=== PATIENT | male | born 1950 | race Caucasian/White ===

== ENCOUNTER → 2020-04-12 09:27 | Outpatient (BNVA) | payer MEDICARE, OTHER, SELFPAY | PROVIDERS: PCP Nurse Practitioner Family; Visit Provider Nurse Practitioner Family | DX: R53.83 Other fatigue (principal); R07.89 Other chest pain; R53.81 Other malaise; R05 Cough; W57.XXXA Bitten or stung by nonvenomous insect and other nonvenomous arthropods, initial encounter | CPT/HCPCS: 80053; 84443; 85025; 86618; 86666; 86757 ==

== ENCOUNTER → 2020-08-10 09:24 | Outpatient (BNVA) | payer MEDICARE, OTHER, SELFPAY | PROVIDERS: PCP Nurse Practitioner Family; Visit Provider Nurse Practitioner Family | DX: I10 Essential (primary) hypertension (principal); H40.9 Unspecified glaucoma; R21 Rash and other nonspecific skin eruption; M48.02 Spinal stenosis, cervical region | CPT/HCPCS: 80053; 80061; 84443; 85025 ==

== ENCOUNTER → 2020-11-09 13:14 | Outpatient (BNVA) | payer MEDICARE, OTHER, SELFPAY | PROVIDERS: PCP Nurse Practitioner Family; Referring Provider Nurse Practitioner Family; Visit Provider Orthopaedic Surgery | DX: M50.30 Other cervical disc degeneration, unspecified cervical region (principal); M48.02 Spinal stenosis, cervical region; M85.80 Other specified disorders of bone density and structure, unspecified site | CPT/HCPCS: 72050 ==

== ENCOUNTER → 2021-03-09 11:27 | Outpatient (BNVA) | payer MEDICARE, OTHER, SELFPAY | PROVIDERS: PCP Nurse Practitioner Family; Visit Provider Nurse Practitioner Family | DX: Z20.822 Contact with and (suspected) exposure to COVID-19 (principal); R19.7 Diarrhea, unspecified | CPT/HCPCS: 87635 ==

== ENCOUNTER → 2021-03-14 08:44 | Outpatient (BNVA) | payer MEDICARE, OTHER, SELFPAY | PROVIDERS: PCP Nurse Practitioner Family; Visit Provider Nurse Practitioner Family | DX: R19.7 Diarrhea, unspecified (principal) | CPT/HCPCS: 87506 ==

== ENCOUNTER → 2021-07-14 10:37 | Outpatient (BNVA) | payer MEDICARE, OTHER, SELFPAY | PROVIDERS: PCP Nurse Practitioner Family; Visit Provider Physician Assistant | DX: M47.12 Other spondylosis with myelopathy, cervical region (principal) | CPT/HCPCS: 72050 ==

== ENCOUNTER 2021-08-05 08:55 | Outpatient (CLI) | payer MEDICARE, OTHER, SELFPAY ==
--- NOTE | 2021-08-05 09:30 | MR_ITS ---
WS: [id number] MRI CERVICAL SPINE NONCONTRAST HISTORY: M54.50 - Low back pain, unspecified COMPARISON: 12/21/2015 Technique: Multiplanar, multisequence noncontrast imaging of the cervical spine. Normal posterior lumbar alignment. Mild disc space narrowing. Vertebral body osteophytes throughout t he cervical spine encroach upon the cervical cord. Signal within the cervical cord is normal. Visualized posterior fossa is unremarkable. Craniocervical junction, C1 and C2 relationship, odontoid process and soft tissues are normal. C2-C3: Small bilateral foraminal osteophytes. Mild foraminal narrowing, RIGHT greater than LEFT. C3-C4: Mild annular disc bulge with a tiny central disc protrusion. Bilateral foraminal osteophytes a nd mild facet joint arthritis. Mild central and bilateral foraminal stenosis. C4-C5: Moderate annular disc bulging with effacement of CSF. There is a more focal disc osteophyte co mplex to the RIGHT causing deformity and posterior displacement of the RIGHT cervical cord. Moderate central with moderate to severe bilateral foraminal stenosis. C5-C6: Diffuse osteophytic ridging. Effacement of CSF moderate ligamentum flavum and facet arthritis. Osteophytes extend into the foramen. Severe central and bilateral foraminal stenosis. C6-C7: Mild annular disc bulging with a central disc protrusion. Disc and osteophyte encroaches into the foramina. Mild central stenosis. Moderate bilateral foraminal stenosis. C7-T1: Small bilateral foraminal osteophytes. No stenosis. Paraspinal soft tissue are normal. MR/MR cervical spin wo con* [id number] IMPRESSION: 1. Significant progression of degenerative stenosis throughout the cervical sp ine since 2016. 2. Severe central and bilateral foraminal stenosis at C5-6 due to disc and ost eophyte and facet arthritis. 3. Moderate central with moderate to severe bilateral foraminal stenosis at C4 -5 due to disc and osteophyte disease. Mild posterior displacement of the RIGHT cervical cord by disc osteophyte. 4. Moderate bilateral foraminal stenosis at C6-7 with mild central stenosis. 5. Mild central and bilateral foraminal stenosis at C3-4 and mild RIGHT forami nal stenosis at C2-3.
--- NOTE | 2021-08-05 10:15 | MR_ITS ---
WS: [id number] MRI LUMBAR SPINE NONCONTRAST HISTORY: M54.50 - Low back pain, unspecified COMPARISON: 12/28/2015 TECHNIQUE: Sagittal and axial multisequence imaging is submitted. Normal lumbar alignment with no compression fractures or marrow edema. Very mild disc desiccation without significant loss of height. Conus terminates normally at L1. L1-L2: Moderate facet joint hypertrophy greatest on the RIGHT. Mild encroachment into the subarticula r recess. Mild bilateral foraminal narrowing, RIGHT greater than LEFT and mild RIGHT subarticular rec ess encroachment. No high-grade central stenosis. L2-L3: Mild ligamentum flavum hypertrophy with mild to moderate facet arthritis. Mild encroachment in to the central canal. Mild foraminal narrowing. L3-L4: Diffuse annular disc bulge with moderate facet joint arthritis and minimal ligamentum flavum h ypertrophy. There is encroachment and flattening of the ventral thecal sac with narrowing of the suba rticular recesses and foramina. There is at least mild to moderate bilateral foraminal narrowing with disc and osteophyte contacting the L3 and L4 nerve roots. L4-L5: Diffuse mild annular disc bulging and osteophytic ridging. Moderate ligamentum flavum and face t joint arthritis. Encroachment into the thecal sac resulting at least moderate central stenosis. Sev ere bilateral subarticular recess and RIGHT foraminal stenosis and moderate on the LEFT. There is als o a central disc protrusion. There is significant contact on the traversing L5 nerve roots. L5-S1: Broad-based disc bulging centrally contacting the ventral thecal sac. No significant stenosis. Mild atherosclerotic changes within the visualized abdominal aorta. MR/MR lumbar spine wo con* [id number] IMPRESSION: 1. Severe bilateral subarticular recess and RIGHT foraminal stenosis and moder ate on the LEFT at L4-5. Significant contact on the traversing L5 nerve roots. 2. Moderate central stenosis at L4-5. 3. Mild to moderate bilateral subarticular recess and foraminal narrowing at L 3-4 with mild contact on the L3 and L4 nerve roots. 4. Mild encroachment into the subarticular recesses and foramina at L1-2. Slig htly greater on the RIGHT than the LEFT. No high-grade central stenosis. 5. Minimal central and foraminal narrowing at L2-3.
== END 2021-08-05 08:56 | disposition home or self-care (01) ==
PROVIDERS: PCP Nurse Practitioner Family; Visit Provider Physician Assistant
DX: M48.061 Spinal stenosis, lumbar region without neurogenic claudication (principal); M48.02 Spinal stenosis, cervical region; M25.78 Osteophyte, vertebrae
CPT/HCPCS: 72141; 72148

== ENCOUNTER → 2021-09-07 09:40 | Outpatient (BNVA) | payer MEDICARE, OTHER, SELFPAY | PROVIDERS: PCP Nurse Practitioner Family; Referring Provider Orthopaedic Surgery; Visit Provider Anesthesiology Pain Medicine | DX: M50.30 Other cervical disc degeneration, unspecified cervical region (principal); M47.812 Spondylosis without myelopathy or radiculopathy, cervical region; M47.12 Other spondylosis with myelopathy, cervical region; M48.062 Spinal stenosis, lumbar region with neurogenic claudication; M47.816 Spondylosis without myelopathy or radiculopathy, lumbar region; M51.16 Intervertebral disc disorders with radiculopathy, lumbar region; M79.604 Pain in right leg; M79.605 Pain in left leg | CPT/HCPCS: 99205 ==

== ENCOUNTER → 2021-11-02 10:43 | Outpatient (BNVA) | payer MEDICARE, OTHER, SELFPAY | PROVIDERS: PCP Nurse Practitioner Family; Visit Provider Nurse Practitioner Family | DX: I10 Essential (primary) hypertension (principal); E55.9 Vitamin D deficiency, unspecified | CPT/HCPCS: 80053; 82306 ==

== ENCOUNTER → 2022-11-07 10:36 | Outpatient (BNVA) | payer MEDICARE, OTHER, SELFPAY | PROVIDERS: PCP Nurse Practitioner Family; Visit Provider Nurse Practitioner Family | DX: Z12.5 Encounter for screening for malignant neoplasm of prostate (principal); F32.A Depression, unspecified; R53.83 Other fatigue; I10 Essential (primary) hypertension; R35.0 Frequency of micturition | CPT/HCPCS: 80053; 81000; 83036; 84439; 84443; 84481; 85025; 87077; 87086; 87184; G0103 ==

== ENCOUNTER 2022-11-11 13:29 | Emergency (ER) | payer MEDICARE, OTHER, SELFPAY ==
[2022-11-11 13:34] VITALS: BP 158/98; PULSE 95; TEMP 36.6; O2SAT 99; BMI 27.3
--- NOTE | 2022-11-11 14:23 | W.ED.ANXIETY ---
Documented by User: ANTIONETTE Lao 11/12/22 07:17 HPI - Anxiety General: Chief Complaint: Anxiety Stated Complaint: SOB; ANXIETY Time Seen by Provider: 11/11/22 13:44 Source: patient Mode of arrival: EMS Limitations: no limitations History of Present Illness: Patient presents to the emergency department today brought by EMS for evaluation treatment of continuation of multiple, varied symptoms. Chart review showed he saw his nurse practitioner on 11/07 for a follow-up on anxiety and depression. Patient at that time was complaining of difficulty sleeping, decreased appetite, fatigue. Patient's depression screening indicated he felt a loss of antonio performing activities, he felt worthless, had a decreased energy level, and was feeling hopeless. He was not HI or SI at that time. Patient was requesting evaluation for his blood pressure and his prostate at that time. Lab work was obtained including CBC, CMP, PSA, thyroid test, and urinalysis. All lab work was within normal limits were otherwise unremarkable. Patient had been put on Prozac where he indicated he was faithfully taking his medication as prescribed. Patient states today much of the same. He also states he is feeling shaky and has a difficult time concentrating or feeling confused. Continues to choose not to eat and reports poor sleep habits. He reports he took EMS because he did not feel he could drive himself in today. Patient reports all of this started around . He informs me that on he was attacked by a dog and based on the level of detail and description of the events, does appear to have given the patient quite a bit of worry and anxiety. Patient states his primary care doctor thinks he has PTSD from it. Associated symptoms: Reports confusion (Difficulty concentrating) Review of Systems General: Reports: 10 or more systems reviewed and unremarkable except in HPI and below Eyes: Reports: blurry vision GI: Reports: early satiety (Loss of appetite) Neuro: Reports: confusion (Difficulty concentrating), behavioral changes and difficulty communicating thoughts Psych: Reports: anxiety, depression, mood swings, sleeping less, hopelessness, loss of interest, change in appetite, irritability and difficulty concentrating; Denies: homicidal ideation PFS ED PFSH: Medical History Degeneration of intervertebral disc of cervical region DJD (degenerative joint disease), lumbar Glaucoma HTN (hypertension) Spinal stenosis, cervical region Surgical History No pertinent past surgical history Family History Father CAD (coronary artery disease) Cancer Lung disease Grandfather Cancer Diabetes Grandmother Diabetes Brother Lung disease Denies family history of Clotting disorder Chronic kidney disease (CKD) Suicide Stroke Social History Smoking and tobacco status: never smoked Second hand smoke exposure: No Alcohol intake: never Adopted: No Lives independently: Yes Household members: none Housing: House Marital status: / Number of children: 2 Highest education level completed: High School Graduate service: Yes ([employer]) status: Retired Current occupational status: retired Pets and animals: Yes Current gender identity: Male Physical Exam Const: COMMON NORMALS: patient oriented x3, no limitations and alert; apparent distress (Patient is emotional, appears frustrated) GENERAL APPEARANCE: well kempt HENMT: COMMON NORMALS: normocephalic, hearing grossly normal bilaterally, external ears normal, Normal external nose present, moist oral mucous membranes and dentition normal HEAD & SCALP: normocephalic NOSE: Normal external nose present EXTERNAL EAR: Yes external ears normal Eye: COMMON NORMALS: Equal, round and reactive pupils present, EOMs intact bilaterally and conjunctivae normal CONJUNCTIVA: Yes conjunctivae normal PUPIL: Yes Equal, round and reactive pupils present Neck/C-Spine: COMMON NORMALS: full ROM, no meningeal signs and no JVD Resp: COMMON NORMALS: normal respiratory effort, No retractions and No use of accessory muscles Cardio: COMMON NORMALS: no JVD and regular rate RATE: regular rate Back/Pelvis: COMMON NORMALS: thoracic and lumbar spine normal to inspection and thoraco-lumbar ROM normal Extremity: COMMON NORMALS: normal to inspection and full ROM Neuro: COMMON NORMALS: patient oriented x3 SENSORIUM/ORIENTATION: Yes alert MENINGEAL SIGNS: Yes no meningeal signs Psych: COMMON NORMALS: speech normal APPEARANCE: Yes grossly normal and Yes well kempt ATTITUDE: Yes calm and Yes engaged ACTIVITY/MOTOR BEHAVIOR: Yes appropriate eye contact and Yes disorganized behavior SPEECH: Yes normal speech MOOD & AFFECT: Yes depressed mood, Yes anxious, Yes sad, Yes tearful and Yes fearful THOUGHT PROCESS: Flight of ideas present and Tangential thought process present THOUGHT CONTENT: Yes Suicidality present (would be ok with going to sleep and not waking up) ATTENTION/CONCENTRATION: Yes attention grossly intact and Yes concentration grossly intact MEMORY/COGNITION: Yes memory grossly intact and Yes cognition grossly intact INSIGHT: Good insight present (Psych) JUDGEMENT: Good judgement present (Psych) Course Vital Signs: Vital signs: Vital Signs Temperature 97.9 F 11/11/22 13:34 Pulse Rate 95 11/11/22 13:34 Blood Pressure 158/98 11/11/22 13:34 Pulse Oximetry 99 11/11/22 13:34 Oxygen Delivery Me thod 11/11/22 13:34 MDM - Anxiety Medical Decision Making Patient was brought in by EMS for evaluation treatment of multiple symptoms. Patient stated he did not feel comfortable driving and has no one with him which is why he came via EMS. I did an extensive chart review on this patient and read his previous evaluation by his primary care doctor where they were worried about depression and PTSD. Patient does admit that a lot of his symptoms started or worsen after his attacked by the dog around [place] but does not seem convinced that he is dealing with depression or PTSD. He does admit he gets anxious sometimes. He admitted he takes the medication given to him by his doctor but he does not particularly want to. Patient feels that there is something else going on and that he is declining rapidly. Patient admits that he is alone at home. He is very isolated both [place], and relationally-his has , [place] and he recently lost his dog. After speaking with the patient, I did speak with Dr. Rojas due to my concerns. After hearing the patient's case he recommended reaching out to psychiatry and I spoke to Dr. Walton. Dr. Walton indicated patient was on a very low-dose of medication and should have his medications increased. Also, indicated the need for behavioral health referral. He recommended putting the patient through Mini-Mental examination to try and decipher psychological from neurological issues. He also encourage me to rephrase the SI/HI questioning to the patient and ask if you were to fall asleep and not wake up in the morning, would that be okay? Patient's MMSE score was 30. When rephrased about falling asleep, patient indicated that yes it would be fine with him to go to sleep and not wake up. He stated it would be easier . At this point, I did request a second opinion at bedside by Dr. Rojas, who I do believe was able to connect a little better with the patient and explained to him a bit further his signs and symptoms indicating concern for a major depression. They discussed changing and adding medication to help better control symptoms and to encourage sleep. They also discussed the option for inpatient treatment however, patient declined stating he does not want to stay in the hospital. However, he was willing to have a behavioral health referral placed. Behavioral health referral placed urgently on the patient's behalf and as he is being taken home by taxi, first round of his new medication and increased medication doses was provided here in the emergency department given the time of night and it being the weekend with concern for his pharmacy being open. However, he was given instructions for starting his new dosing and new medication tomorrow on his discharge paperwork. Patient was also given strict return precautions for change in thinking including SI/HI concerns. This note by Dr. Rojas: I have seen and evaluated the patient. I have interviewed him after reviewing with the nurse practitioner and reviewing his recent work-up and medications. The patient screens positive for major depression as well as anxiety. He has sleep changes, appetite changes, concentration changes, anhedonia, decreased endurance, poor memory, and does not care whether he lives or dies. He is not actively suicidal. I recommended speaking with the psychiatrist. Nurse practitioner did speak with psychiatrist. The patient is not actively suicidal. The patient was given the option of staying in the hospital or seeking outpatient treatment. He would like to be outpatient. The patient is not responding to fluoxetine. His fluoxetine was changed from 10 mg daily to 30 mg daily. He will take this in the morning. The patient is having severe anxiety as well as insomnia and anorexia. I have added on Seroquel 50 mg in the morning and 100 mg in the evenings. He will have to take 50 mg a day for the first 2 days. I am hopeful that this will help him sleep and reduce his severe anxiety. A referral has been sent so that the patient will have a prompt follow-up either with his primary care physician or behavioral health or both. The patient was invited to return should symptoms worsen. Differential Diagnosis Likely panic disorder and acute anxiety (Depression, Parkinson, Alzheimer's, SI/HI) Discharge Plan Discharge Patient Disposition: Home Clinical Impression: Major depression Condition: Stable Prescriptions: New fluoxetine 10 mg capsule 30 mg PO QAM 10 Days Qty: 30 0RF Seroquel 50 mg tablet See Rx Instructions .ROUTE .COMPLEX Qty: 31 0RF Rx Instructions: take 1 tablet on day one. Then, take one tablet in the morning and 2 tablets in the evening every day after. Discontinued fluoxetine [Prozac] 10 mg capsule 10 mg PO DAILY Qty: 30 0RF No Action cholecalciferol (vitamin D3) 25 mcg (1,000 unit) capsule 25 mcg PO DAILY vitamin E 200 unit capsule 200 unit PO DAILY vit A-vit C-vit [id number]-[id number] [id number] tablet PO timolol maleate 0.5 % drops ophthalmic (eye) BID Label Comments: per Dr Dickey brimonidine 0.2 % drops ophthalmic (eye) triamcinolone acetonide 0.1 % ointment 1 applic topical TID 14 Days Qty: 30 2RF Rx Instructions: large area trunk, lower legs terbinafine HCl 250 mg tablet 250 mg PO DAILY Qty: 14 0RF acetaminophen-codeine 300-60 mg tablet 1 tab PO Q6H PRN (Reason: pain) 5 Days Qty: 20 0RF lisinopril 20 mg tablet See Rx Instructions .ROUTE .COMPLEX Qty: 90 1RF Dose Instruction: TAKE ONE TABLET BY MOUTH DAILY Rx Instructions: TAKE ONE TABLET BY MOUTH DAILY Discharge Orders: Discharge ED (Routine); Ordered 11/11/22 Ordered By: Yumiko Isaacs Referrals: Katja Jimenez FNP [Primary Care Provider] - Discharge Diet: Advance as tolerated Discharge Activity: Increase activity as tolerated Patient Instructions: Depression in Older Adults (ED) Activity Restrictions/Additional Instructions: Today in the emergency department we thoroughly evaluated your previous history, your lab work, performed a Mini-Mental state examination and screening for major depression. After speaking to both the psychiatrist on-call and the emergency room physician here, they have concerns that you are showing signs and symptoms of major depression as you are fatigue, have no interest in previously enjoyed activities, have difficulty sleeping, have difficulty concentrating, have difficulty eating, and are feeling very alone. We are changing your medication to have better coverage of this diagnosis. We would like you to take your Prozac 30 mg each morning. The doctor is also added Seroquel to help you sleep. You received your first dose here in the emergency department. Tomorrow you need to take 1 pill. However, every day after you need to take 1 pill in the morning and 2 pills in the afternoon. Please call your primary care doctor first thing on Sunday to get a follow-up appointment this week. I have also requested a referral be placed to behavioral health services for a full evaluation as to better treat and remedy your current symptoms. If it anytime you feel like harming your self or ending your life or feel like harming others you need to return to the emergency room immediately for your safety. 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 [employer]g Fwd Documented by User: Jose Rojas MD 11/11/22 17:49 HPI - Anxiety General: Chief Complaint: Anxiety Stated Complaint: SOB; ANXIETY Time Seen by Provider: 11/11/22 13:44 [facility] ED PFSH: Medical History Degeneration of intervertebral disc of cervical region DJD (degenerative joint disease), lumbar Glaucoma HTN (hypertension) Spinal stenosis, cervical region Surgical History No pertinent past surgical history Family History Father CAD (coronary artery disease) Cancer Lung disease Grandfather Cancer Diabetes Grandmother Diabetes Brother Lung disease Denies family history of Clotting disorder Chronic kidney disease (CKD) Suicide Stroke Social History Smoking and tobacco status: never smoked Second hand smoke exposure: No Alcohol intake: never Adopted: No Lives independently: Yes Household members: none Housing: House Marital status: / Number of children: 2 Highest education level completed: High School Graduate service: Yes ([employer]) status: Retired Current occupational status: retired Pets and animals: Yes Current gender identity: Male Course Vital Signs: Vital signs: Vital Signs Temperature 97.9 F 11/11/22 13:34 Pulse Rate 95 11/11/22 13:34 Blood Pressure 158/98 11/11/22 13:34 Pulse Oximetry 99 11/11/22 13:34 Oxygen Delivery Me thod 11/11/22 13:34 MDM - Anxiety Medical Decision Making This note by Dr. Rojas: I have seen and evaluated the patient. I have interviewed him after reviewing with the nurse practitioner and reviewing his recent work-up and medications. The patient screens positive for major depression as well as anxiety. He has sleep changes, appetite changes, concentration changes, anhedonia, decreased endurance, poor memory, and does not care whether he lives or dies. He is not actively suicidal. I recommended speaking with the psychiatrist. Nurse practitioner did speak with psychiatrist. The patient is not actively suicidal. The patient was given the option of staying in the hospital or seeking outpatient treatment. He would like to be outpatient. The patient is not responding to fluoxetine. His fluoxetine was changed from 10 mg daily to 30 mg daily. He will take this in the morning. The patient is having severe anxiety as well as insomnia and anorexia. I have added on Seroquel 50 mg in the morning and 100 mg in the evenings. He will have to take 50 mg a day for the first 2 days. I am hopeful that this will help him sleep and reduce his severe anxiety. A referral has been sent so that the patient will have a prompt follow-up either with his primary care physician or behavioral health or both. The patient was invited to return should symptoms worsen. Discharge Plan Discharge Patient Disposition: Home Clinical Impression: Major depression Condition: Stable Prescriptions: New fluoxetine 10 mg capsule 30 mg PO QAM 10 Days Qty: 30 0RF Seroquel 50 mg tablet See Rx Instructions .ROUTE .COMPLEX Qty: 31 0RF Rx Instructions: take 1 tablet on day one. Then, take one tablet in the morning and 2 tablets in the evening every day after. Discontinued fluoxetine [Prozac] 10 mg capsule 10 mg PO DAILY Qty: 30 0RF No Action cholecalciferol (vitamin D3) 25 mcg (1,000 unit) capsule 25 mcg PO DAILY vitamin E 200 unit capsule 200 unit PO DAILY vit A-vit C-vit G-lfoz-zhavxj [id number] rhkv-uu-[id number] tablet PO timolol maleate 0.5 % drops ophthalmic (eye) BID Label Comments: per Dr Dickey brimonidine 0.2 % drops ophthalmic (eye) triamcinolone acetonide 0.1 % ointment 1 applic topical TID 14 Days Qty: 30 2RF Rx Instructions: large area trunk, lower legs terbinafine HCl 250 mg tablet 250 mg PO DAILY Qty: 14 0RF acetaminophen-codeine 300-60 mg tablet 1 tab PO Q6H PRN (Reason: pain) 5 Days Qty: 20 0RF lisinopril 20 mg tablet See Rx Instructions .ROUTE .COMPLEX Qty: 90 1RF Dose Instruction: TAKE ONE TABLET BY MOUTH DAILY Rx Instructions: TAKE ONE TABLET BY MOUTH DAILY Discharge Orders: Discharge ED (Routine); Ordered 11/11/22 Ordered By: Yumiko Isaacs Referrals: Katja Jimenez FNP [Primary Care Provider] - Discharge Diet: Advance as tolerated Discharge Activity: Increase activity as tolerated Patient Instructions: Depression in Older Adults (ED) Activity Restrictions/Additional Instructions: Today in the emergency department we thoroughly evaluated your previous history, your lab work, performed a Mini-Mental state examination and screening for major depression. After speaking to both the psychiatrist on-call and the emergency room physician here, they have concerns that you are showing signs and symptoms of major depression as you are fatigue, have no interest in previously enjoyed activities, have difficulty sleeping, have difficulty concentrating, have difficulty eating, and are feeling very alone. We are changing your medication to have better coverage of this diagnosis. We would like you to take your Prozac 30 mg each morning. The doctor is also added Seroquel to help you sleep. You received your first dose here in the emergency department. Tomorrow you need to take 1 pill. However, every day after you need to take 1 pill in the morning and 2 pills in the afternoon. Please call your primary care doctor first thing on Sunday to get a follow-up appointment this week. I have also requested a referral be placed to behavioral health services for a full evaluation as to better treat and remedy your current symptoms. If it anytime you feel like harming your self or ending your life or feel like harming others you need to return to the emergency room immediately for your safety. 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 Ernesto Watkins
[2022-11-11] MEDS: quetiapine 25 mg Tablet 50 MG PO (15:46)
[2022-11-11] MEDS: fluoxetine 20 mg Capsule PO (15:47)
--- NOTE | 2022-11-14 09:58 | DCPLANNER ---
Addendum entered by Donna Quiroga 11/14/22 13:27: Marnie from [facility] emailed heel caser: I called [facility] and left a voicemail with my call back number. Original Note: credit administration manager had message to schedule a follow up appointment for patient with [facility]. credit administration manager sent patients information to the front office staff at [facility] and emailed patients information to Marnie Barillas, patient intake coordinator, at [facility]. Patients information will be printed and reviewed. Clinic will call patient with appointment information.
== END 2022-11-11 16:02 | disposition home or self-care (01) ==
PROVIDERS: Emergency Provider Emergency Medicine; PCP Nurse Practitioner Family
DX: F32.A Depression, unspecified (principal); I10 Essential (primary) hypertension
CPT/HCPCS: 99283

== ENCOUNTER → 2022-11-22 10:26 | Outpatient (BNVA) | payer MEDICARE, OTHER, SELFPAY | PROVIDERS: PCP Nurse Practitioner Family; Visit Provider Nurse Practitioner Family | DX: R35.0 Frequency of micturition (principal) | CPT/HCPCS: 81000 ==

== ENCOUNTER → 2023-03-28 10:48 | Outpatient (BNVA) | payer MEDICARE, OTHER, SELFPAY | PROVIDERS: PCP Nurse Practitioner Family; Visit Provider Nurse Practitioner Family | DX: I10 Essential (primary) hypertension (principal) | CPT/HCPCS: 80053; 80061 ==

== ENCOUNTER → 2023-10-17 10:27 | Outpatient (BNVA) | payer MEDICARE, OTHER, SELFPAY | PROVIDERS: PCP Nurse Practitioner Family; Visit Provider Nurse Practitioner Family | DX: R53.83 Other fatigue (principal); Z12.5 Encounter for screening for malignant neoplasm of prostate; I10 Essential (primary) hypertension; E55.9 Vitamin D deficiency, unspecified | CPT/HCPCS: 80053; 80061; 82306; 84443; 85025; G0103 ==

== ENCOUNTER → 2024-06-17 10:40 | Outpatient (BNVA) | payer MEDICARE, OTHER, SELFPAY | PROVIDERS: PCP Nurse Practitioner Family; Visit Provider Nurse Practitioner Family | DX: E55.9 Vitamin D deficiency, unspecified (principal); R53.83 Other fatigue; I10 Essential (primary) hypertension; W57.XXXA Bitten or stung by nonvenomous insect and other nonvenomous arthropods, initial encounter | CPT/HCPCS: 80053; 80061; 82306; 84439; 84443; 85025 ==

== ENCOUNTER → 2024-06-18 08:58 | Outpatient (BNVA) | payer MEDICARE, OTHER, SELFPAY | PROVIDERS: PCP Nurse Practitioner Family; Visit Provider Nurse Practitioner Family | DX: W57.XXXA Bitten or stung by nonvenomous insect and other nonvenomous arthropods, initial encounter (principal) | CPT/HCPCS: 86618; 86666; 86757 ==

== ENCOUNTER 2024-12-04 10:47 | Emergency (ER) | payer MEDICARE, OTHER, SELFPAY ==
[2024-12-04 11:00] VITALS: BP 174/93; PULSE 101; RESP 18; TEMP 36.8; O2SAT 99; BMI 28.5
--- NOTE | 2024-12-04 13:25 | W.ED.ABDPA2 ---
HPI - Abdominal Pain General: Chief Complaint: Abdominal Pain Stated Complaint: bowel problems Time Seen by Provider: 12/04/24 13:14 Source: patient Mode of arrival: ambulatory Limitations: no limitations History of Present Illness: Patient is a nice 73-year-old male presents to ED today with complaint of bowel problems . He states about 3 weeks ago he began having cough and congestion so took 2 tablets of fish Amoxicillin. He feels like this tore my stomach up . Since then he has been having issues with constipation, bloating, abdominal discomfort, burning to his left lower abdomen. At one point he did have a large/formed bowel movement with a small amount of bright red blood following this which has since subsided. He has been drinking well but doesn't feel like he has ate much secondary to symptoms. MD elicited complaint: abdominal pain Pertinent past history: none Onset (ago): week(s) Pain Consistency: intermittent Location: LLQ Severity: moderate Quality: burning Radiation: none Migration to: no migration Exacerbating factors: bowel movement Relieving factors: nothing Associated Symptoms: Reports bloating, constipation, GI cramping and nausea; Denies chills, dysuria, fever(s), hematochezia, melena and vomiting Related Data Home Medications ?Medication ?Instructions ?Recorded ?Confirmed brimonidine 0.2 % eye drops 1 drp ophthalmic (eye) BID 08/10/20 12/04/24 cholecalciferol (vitamin D3) 25 25 mcg PO DAILY 08/10/20 12/04/24 mcg (1,000 unit) capsule vit A 7,160 unit-vit C 113 mg-vit 1 tab PO BID 08/10/20 12/04/24 E 100 [id number]-[id number]-tmclqv tablet latanoprost 0.005 % eye drops 1 drp ophthalmic (eye) QPM 12/04/24 12/04/24 lisinopril 20 mg tablet 20 mg PO DAILY 12/04/24 12/04/24 multivitamin 1 tab PO DAILY 12/04/24 12/04/24 vitamin E 268 mg (400 unit) capsule 268 mg PO DAILY 12/04/24 12/04/24 zinc sulfate 50 mg zinc (220 mg) 50 mg PO BID 12/04/24 12/04/24 tablet Previous Rx's ?Medication ?Instructions ?Recorded acetaminophen 300 mg-codeine 60 mg 1 tab PO Q6H PRN pain 5 days #20 03/10/25 tablet tabs quetiapine 50 mg tablet (Seroquel) See Rx Instructions .Route 11/24/24 .COMPLEX #90 tabs fluoxetine 10 mg capsule (Prozac) 10 mg PO DAILY #90 caps 11/26/24 Allergies Allergy/AdvReac Type Severity Reaction Status Date / Time No Known Allergies Allergy Verified 06/17/24 09:58 Review of Systems Const: Denies: fever(s), chills, body aches, fatigue or malaise Card: Denies: chest pain Resp: Denies: dyspnea GI: Reports: abdominal pain, nausea, constipation, bloating, GI cramping and rectal pain; Denies: vomiting, hematochezia or melena : Denies: flank pain, difficulty urinating, dysuria, urinary frequency, urinary urgency or urinary hesitancy Musc: Denies: neck pain, back pain, extremity pain, extremity swelling, joint swelling or joint redness Skin/Breast: Denies: rash Neuro: Denies: headache(s), numbness in extremities, weakness in extremities, sensory changes or dizziness PFSH ED PFSH: Medical History Degeneration of intervertebral disc of cervical region Glaucoma HTN (hypertension) DJD (degenerative joint disease), lumbar Spinal stenosis, cervical region Surgical History No pertinent past surgical history Family History Father CAD (coronary artery disease) Cancer Lung disease Grandfather Cancer Diabetes Grandmother Diabetes Brother Lung disease Denies family history of Clotting disorder Chronic kidney disease (CKD) Suicide Stroke Social History Smoking and tobacco/nicotine status: current every day tobacco/nicotine user Second hand smoke exposure: No Alcohol intake: never Substance/Drug Use: never Adopted: No Lives independently: Yes Household members: none Housing: House Marital status: / Number of children: 2 Highest education level completed: High School Graduate service: Yes (Hired) status: Retired Current occupational status: retired Pets and animals: Yes Current gender identity: Male Physical Exam Const: COMMON NORMALS: no acute distress, average body habitus, patient oriented x3, no limitations, healthy appearing, alert and well nourished GENERAL APPEARANCE: cooperative ORIENTATION/CONSCIOUSNESS: Yes awake, Yes oriented to person, Yes oriented to place and Yes oriented to time Eye: COMMON NORMALS: no scleral icterus Resp: COMMON NORMALS: normal respiratory effort and clear to auscultation bilaterally AUSCULTATION: clear to auscultation bilaterally Cardio: COMMON NORMALS: regular rate and regular rhythm RATE: regular rate RHYTHM: regular rhythm GI: COMMON NORMALS: Normal to inspection, nondistended, normoactive bowel sounds present, Soft to palpation, No hepatosplenomegaly present and no masses INSPECTION: Yes normal to inspection AUSCULTATION: Yes normoactive bowel sounds PALPATION: Yes Soft to palpation, Yes Tenderness to palpation present (GI) (LLQ), No Guarding due to palpation present (GI), No Rigid due to palpation and Yes No hepatosplenomegaly present RECTAL EXAM: Yes other (small non-thrombosed external hemorrhoids) : COMMON NORMALS: Yes no CVA tenderness BLADDER/KIDNEY EXAM: Yes no CVA tenderness Back/Pelvis: COMMON NORMALS: no CVA tenderness Neuro: COMMON NORMALS: patient oriented x3 SENSORIUM/ORIENTATION: Yes alert, Yes oriented to person, Yes oriented to place and Yes oriented to time Course Vital Signs: Vital signs: Vital Signs Temperature 98.3 F 12/04/24 11:00 Pulse Rate 101 H 12/04/24 11:00 Respiratory Rate 18 12/04/24 11:00 Blood Pressure 139/83 12/04/24 15:36 Pulse Oximetry 97 12/04/24 15:36 Oxygen Delivery Me thod Room Air 12/04/24 11:00 MDM - Abdominal Pain Medical Decision Making Patient clinically appears in no acute distress. Vital signs are stable. Blood work overall is nonactionable. His UA does not appear infected. CT scan showing moderate colonic stool burden. No acute or surgical abnormalities appreciated. Incidentally found to have prostatomegaly. Does not think he has ever had a prostate screening exam. He has never had a colonoscopy. An ED standpoint, patient will be allowed discharge. I do want him to follow-up with primary care for an ER follow-up. Return to ED precautions discussed. Medical Records I reviewed the patient's medical records. Lab Data I reviewed the patient's lab results. 12/04/24 13:20 12/04/24 13:20 Labs/Radiology: Radiology Impressions Abdomen/Pelvis CT 12/04/24 13:31 IMPRESSION: 1. No bowel obstruction or acute inflammation. 2. Moderate colonic stool burden. Correlate for constipation. 3. Mild colonic diverticulosis. 4. Prostatomegaly, likely contributing to a component of noted bladder wall thickening. Recommend correlation if there is concern for cystitis. COMMENTS: Consistent with the [employer]'s Incidental Findings Committee white paper (J Am Sera Radiol 2018): Any incidental renal lesion less than 1 cm or classified as too small to characterize, or any incidental cystic renal lesion characterized as simple-appearing, is likely benign. No follow-up imaging is recommended for these lesions per consensus recommendations based on imaging criteria. Laboratory Results WBC 11.29 10^3/uL (3.29-11.43) 12/04/24 13:20 RBC 4.54 10^6/uL (3.85-5.65) 12/04/24 13:20 Hgb 15.40 g/dL (11.27-16.99) 12/04/24 13:20 Hct 47.1 % (37-53) 12/04/24 13:20 MCV 103.7 fl (82-101) H 12/04/24 13:20 MCH 33.9 pg (27-33) H 12/04/24 13:20 MCHC 32.7 g/dL (30-55) 12/04/24 13:20 RDW 13.1 % (12.1-15.1) 12/04/24 13:20 Plt Count 287 10^3/cmm (157-399) 12/04/24 13:20 MPV 9.7 fL (7.4-10.4) 12/04/24 13:20 Neut % (Auto) 81.1 % 12/04/24 13:20 Lymph % (Auto) 12.8 % 12/04/24 13:20 [place] % (Auto) 5.4 % 12/04/24 13:20 Eos % (Auto) 0.1 % 12/04/24 13:20 Baso % (Auto) 0.3 % 12/04/24 13:20 Neut # (Auto) 9.16 10^3/uL (1.8-7.7) H 12/04/24 13:20 Lymph # (Auto) 1.5 10^3/uL (0.8-4.8) 12/04/24 13:20 [place] # (Auto) 0.6 10^3/uL (0.2-0.9) 12/04/24 13:20 Eos # (Auto) 0.0 10^3/uL (0.0-0.8) 12/04/24 13:20 Baso # (Auto) 0.0 10^3/uL (0.0-0.1) 12/04/24 13:20 Nucleated RBC % (auto) 0 % 12/04/24 13:20 Nucleated RBCs # 0.0 /100WBC 12/04/24 13:20 Sodium 137 mmol/L (136-145) 12/04/24 13:20 Potassium 4.1 mmol/L (3.5-5.1) 12/04/24 13:20 Chloride 100 mmol/L (98-107) 12/04/24 13:20 Carbon Dioxide 24 mmol/L (22-29) 12/04/24 13:20 Anion Gap 17.1 (5-19) 12/04/24 13:20 BUN 14 mg/dL (8-23) 12/04/24 13:20 Creatinine 1.0 mg/dL (0.7-1.2) 12/04/24 13:20 GFR Calculation Not Reportable 12/04/24 13:20 Glucose 98 mg/dL (65-115) 12/04/24 13:20 Calculated Osmolality 284 mOsm/kg (285-295) L 12/04/24 13:20 Calcium 10.1 mg/dL (8.5-10.5) 12/04/24 13:20 Total Bilirubin 0.5 mg/dL (0.15-1.2) 12/04/24 13:20 AST 15 U/L (0-40) 12/04/24 13:20 ALT 13 U/L (0-41) 12/04/24 13:20 Alkaline Phosphatase 82 U/L (40-130) 12/04/24 13:20 Total Protein 9.3 g/dL (6.6-8.7) H 12/04/24 13:20 Albumin 4.5 g/dL (3.5-5.2) 12/04/24 13:20 Globulin 4.8 g/dL (1.3-4.6) H 12/04/24 13:20 Lipase 32 U/L (13-60) 12/04/24 13:20 Urine Color Yellow (Yellow) 12/04/24 14:14 Urine Appearance Clear (CLEAR) 12/04/24 14:14 Urine pH 5.5 (5-7) 12/04/24 14:14 Ur Specific [place] 1.017 (1.005-1.030) 12/04/24 14:14 Urine Protein Negative (Negative) 12/04/24 14:14 Urine Glucose (UA) Negative (Normal) 12/04/24 14:14 Urine Ketones 2+ (Negative) H 12/04/24 14:14 Urine Blood Negative (Negative) 12/04/24 14:14 Urine Nitrate Negative (Negative) 12/04/24 14:14 Urine Bilirubin Negative (Negative) 12/04/24 14:14 Urine Urobilinogen 0.2 mg/dL (Negative) 12/04/24 14:14 Ur Leukocyte Esterase Trace (Negative) A 12/04/24 14:14 Urine RBC 0-2 /hpf (0-2) 12/04/24 14:14 Urine WBC 0-5 /hpf (0-5) 12/04/24 14:14 Ur Squamous Epith Cells 0-5 /hpf (0-5) 12/04/24 14:14 Amorphous Sediment Not Reportable 12/04/24 14:14 Urine Bacteria None seen /hpf (NONE) 12/04/24 14:14 Hyaline Casts 0.81 /lpf 12/04/24 14:14 All radiology interpretation(s) finalized by discharge Discharge Plan Discharge Patient Disposition: Home Clinical Impression: Constipation Qualifiers: Constipation type: unspecified constipation type Qualified Code(s): K59.00 - Constipation, unspecified Condition: Stable Prescriptions: No Action cholecalciferol (vitamin D3) 25 mcg (1,000 unit) capsule 25 mcg PO DAILY vit A-vit C-vit [id number]-zhehyi 7,160-113-100 yibq-my-whcx tablet 1 tab PO BID brimonidine 0.2 % drops 1 drp ophthalmic (eye) BID Seroquel 50 mg tablet See Rx Instructions .ROUTE .COMPLEX Qty: 90 0RF Rx Instructions: take one tablet in the morning and 2 tablets in the evening every day after. acetaminophen-codeine 300-60 mg tablet 1 tab PO Q6H PRN (Reason: pain) 5 Days Qty: 20 0RF fluoxetine [Prozac] 10 mg capsule 10 mg PO DAILY Qty: 90 0RF multivitamin Tablet 1 tab PO DAILY latanoprost 0.005 % drops 1 drp ophthalmic (eye) QPM zinc sulfate 50 mg zinc (220 mg) Tablet 50 mg PO BID vitamin E 268 mg (400 unit) Capsule 268 mg PO DAILY lisinopril 20 mg tablet 20 mg PO DAILY Discharge Orders: Discharge ED (Routine); Ordered 12/04/24 Ordered By: Unique Schultz Referrals: Katja Jimenez FNP [Primary Care Provider] - Activity Restrictions/Additional Instructions: We discussed several bdpk-one-fvqqvph medications to help with your constipation. I do want you to follow-up with your primary care provider for ER follow-up to go over today's visit. You were incidentally found to have an enlarged prostate on your CT scan. Primary care can speak to you regarding this and prostate screening. We also discussed a colonoscopy as you have never had one. Print Language: Kazakh Coding Level of Care Code ED Mixer Wet Pour for Ernesto Watkins
[2024-12-04 13:29] LABS: Basophils % 0.3 %; Eosinophils % 0.1 %; Hematocrit 47.1 % (37-53); Lymphocytes # 1.5 10^3/uL (0.8-4.8); Lymphocytes % 12.8 %; Mean Corpuscular HGB Conc 32.7 g/dL (30-55); Mean Corpuscular Hemoglobin 33.9 pg (27-33); Mean Corpuscular Volume 103.7 fl (82-101); Mean Platelet Volume 9.7 fL (7.4-10.4); Monocytes # 0.6 10^3/uL (0.2-0.9); Monocytes % 5.4 %; Neutrophils # 9.16 10^3/uL (1.8-7.7); Neutrophils % 81.1 %; Nucleated Red Blood Cells % 0 %; Platelet Count 287 10^3/cmm (157-399); Red Blood Count 4.54 10^6/uL (3.85-5.65); Red Cell Distribution Width 13.1 % (12.1-15.1); White Blood Count 11.29 10^3/uL (3.29-11.43)
--- NOTE | 2024-12-04 13:31 | CTR_ITS ---
PROCEDURE INFORMATION: Exam: CT Abdomen And Pelvis With Contrast Exam date and time: 12/04/2024 2:45 PM Age: 73 years old Clinical indication: Abdominal pain; Generalized; Additional info: Abdominal pain, burning llq/rectum TECHNIQUE: Imaging protocol: Computed tomography of the abdomen and pelvis with contrast. Radiation optimization: All CT scans at this facility use at least one of these dose optimization techniques: automated exposure control; mA and/or kV adjustment per patient size (includes targeted exams where dose is matched to clinical indication); or iterative reconstruction. Contrast material: OMNIPAQUE 350; Contrast volume: 100 ml; Contrast route: INTRAVENOUS (IV); COMPARISON: MR lumbar spine wo con* [id number] 08/05/2021 10:48 AM RADIATION DOSE METRICS: Total DLP (mGy-cm): 577.49 FINDINGS: Lungs: Lung bases are clear as visualized. Liver: Normal. No mass. Gallbladder and biliary ducts: Normal. No calcified stones. No ductal dilation. Pancreas: Normal. No ductal dilation. Spleen: Normal. No splenomegaly. Adrenal glands: Normal. No mass. Kidneys and ureters: Benign-appearing left renal cysts. No further follow-up needed. Stomach and bowel: No bowel obstruction or acute inflammation. Moderate colonic stool burden. Correlate constipation. Mild colonic diverticulosis. Appendix: Appendix is normal. Intraperitoneal space: Unremarkable. No free air. No significant fluid collection. Vasculature: Unremarkable. No abdominal aortic aneurysm. Lymph nodes: Unremarkable. No enlarged lymph nodes. Urinary bladder: Moderate circumferential bladder wall thickening, a component of which is due to decompression and prostatomegaly. Reproductive: Prostate gland is enlarged. Bones/joints: Unremarkable. No acute fracture. Soft tissues: Unremarkable. CT/CT abdomen pelvis w con* [id number] IMPRESSION: 1. No bowel obstruction or acute inflammation. 2. Moderate colonic stool burden. Correlate for constipation. 3. Mild colonic diverticulosis. 4. Prostatomegaly, likely contributing to a component of noted bladder wall thickening. Recommend correlation if there is concern for cystitis. COMMENTS: Consistent with the [employer]'s Incidental Findings Committee white paper (J Am Sera Radiol 2018): Any incidental renal lesion less than 1 cm or classified as too small to characterize, or any incidental cystic renal lesion characterized as simple-appearing, is likely benign. No follow-up imaging is recommended for these lesions per consensus recommendations based on imaging criteria.
[2024-12-04 13:47] VITALS: BP 167/90; O2SAT 97
[2024-12-04 13:50] LABS: Alanine Aminotransferase 13 U/L (0-41); Albumin Level 4.5 g/dL (3.5-5.2); Alkaline Phosphatase 82 U/L (40-130); Anion Gap 17.1 (5-19); Aspartate Amino Transferase 15 U/L (0-40); Blood Urea Nitrogen 14 mg/dL (8-23); Calcium 10.1 mg/dL (8.5-10.5); Carbon Dioxide 24 mmol/L (22-29); Chloride 100 mmol/L (98-107); Creatinine Clr Calc Pharmacy 65.6153; Globulin 4.8 g/dL (1.3-4.6); Glucose 98 mg/dL (65-115); Lipase 32 U/L (13-60); Osmolality Calculated 284 mOsm/kg (285-295); Potassium 4.1 mmol/L (3.5-5.1); Sodium 137 mmol/L (136-145); Total Bilirubin 0.5 mg/dL (0.15-1.2); Total Protein 9.3 g/dL (6.6-8.7)
[2024-12-04 14:06] VITALS: BP 167/90; O2SAT 97
[2024-12-04 14:29] LABS: Bilirubin Urine Negative (Negative); Blood Urine Negative (Negative); Glucose Urine UA Negative (Normal); Ketones Urine 2+ (Negative); Leukocyte Esterase Urine Trace (Negative); Nitrate Urine Negative (Negative); Protein Urine Negative (Negative); Specific Gravity, Urine 1.017 (1.005-1.030); Urine Appearance Clear (CLEAR); Urine Color Yellow (Yellow); Urobilinogen Urine 0.2 mg/dL (Negative); pH Urine 5.5 (5-7)
[2024-12-04 14:31] LABS: Add Urine Microscopic? YES; Bacteria Urine None Seen /hpf; Hyaline Casts Urine 0.81 /lpf; RBC Urine 0-2 /hpf (0-2); Squamous Epithelial Cell Urine 0-5 /hpf (0-5); WBC Urine 0-5 /hpf (0-5)
[2024-12-04] MEDS: iohexol 350 mg/mL 500 mL Btl (per mL) IV (14:49)
[2024-12-04 15:01] VITALS: BP 148/88; O2SAT 99
[2024-12-04 15:36] VITALS: BP 139/83; O2SAT 97
[2024-12-04 16:08] VITALS: BP 144/91; PULSE 85; RESP 16; O2SAT 96
--- NOTE | 2024-12-05 07:16 | DCPLANNER ---
messaged pcp clinical staff to schedule er f/u appt
== END 2024-12-04 16:09 | disposition home or self-care (01) ==
PROVIDERS: Emergency Provider Physician Assistant; PCP Nurse Practitioner Family
DX: K59.00 Constipation, unspecified (principal); Z72.0 Tobacco use; I10 Essential (primary) hypertension
CPT/HCPCS: 36415; 74177; 80053; 81001; 83690; 85025; 99285

== ENCOUNTER → 2024-12-11 08:19 | Outpatient (BNVA) | payer MEDICARE, OTHER, SELFPAY | PROVIDERS: PCP Nurse Practitioner Family; Visit Provider Nurse Practitioner Family | DX: Z12.5 Encounter for screening for malignant neoplasm of prostate (principal); N40.1 Benign prostatic hyperplasia with lower urinary tract symptoms; R35.1 Nocturia | CPT/HCPCS: G0103 ==

== ENCOUNTER → 2024-12-17 09:44 | Outpatient (BNVA) | payer MEDICARE, OTHER, SELFPAY | PROVIDERS: PCP Nurse Practitioner Family; Referring Provider Nurse Practitioner Family; Visit Provider Surgery | DX: Z12.11 Encounter for screening for malignant neoplasm of colon (principal) | CPT/HCPCS: 99024; 99204 ==

== ENCOUNTER → 2025-01-20 14:35 | Outpatient (BNVA) | payer MEDICARE, OTHER, SELFPAY | PROVIDERS: PCP Nurse Practitioner Family; Visit Provider Surgery | DX: R19.7 Diarrhea, unspecified (principal) | CPT/HCPCS: 99213 ==

== ENCOUNTER 2025-02-05 09:55 | Day surgery (SDC) | payer MEDICARE, OTHER, SELFPAY ==
[2025-02-05 10:12] VITALS: BP 141/84; PULSE 94; RESP 16; TEMP 36.3; O2SAT 99; BMI 27.3
--- NOTE | 2025-02-05 10:14 | P.HPUD_ITS ---
Surgery/Procedure H&P Update DATE OF PROCEDURE: February 05, 2025 DATE H&P PERFORMED: 01/20/25 H&P UPDATE INFORMATION: I have reviewed H&P completed within last 30 days, I have examined patient prior to procedure, No changes to prior documentation, H&P is in [facility] EMR on date indicated and Risks and benefits of the procedure reviewed PLANNED PROCEDURE: Operation Date: 02/05/25 11:45 Proposed Procedures p Colonoscopy 12518 G0105 R19.7(Not Applicable) - Phoenix Byrd MD
[2025-02-05] MEDS: sodium chloride 0.9% 1,000 ML 15 ML IV (10:18)
--- NOTE | 2025-02-05 10:45 | ANES.PREANE2 ---
Pre-Anesthetic Assessment Height/Weight: Height 1.7 m Weight 79.379 kg Temp Pulse Resp BP Pulse Ox O2 Del Method 97.3 F L 94 16 141/84 99 Room Air 02/05/25 10:12 02/05/25 10:12 02/05/25 10:12 02/05/25 10:12 02/05/25 10:12 02/05/25 10:12 Operation Date: 02/05/25 11:45 Proposed Procedures p Colonoscopy 92539 G0105 R19.7(Not Applicable) - Phoenix Byrd MD Familial anesthetic complications: none Was Beta Mallorie taken within 24 hours: N/A Was Clonidine taken within 24 hours: N/A Last intake: Intake Last Liquid Date 02/04/25 Last Liquid Time 20:00 Last Solid Date 02/03/25 Last Solid Time 18:00 Social Tobacco (a few cigs every 3-4 days) and No alcohol Exam alert and oriented x 3 Airway Submandibular: within normal limits Cervical ROM: within normal limits Mallampati: Class II Dentition: full Pulmonary None reported CV/HEM Hypertension None reported Hepatic None reported GI Gastroesophageal Reflux Disease Metabolic None reported Musc/skel None reported Neuropsych None reported very nervous for procedure today Anesthetic Plan ASA status: 2 Anesthesia: Anesthesia Evaluation and MAC Medications/Allergies Home Medications ?Medication ?Instructions ?Recorded ?Confirmed ?Last Taken ?Type brimonidine 0.2 % eye drops 1 drp ophthalmic (eye) BID 08/10/20 02/02/25 02/04/25 07:00 History cholecalciferol (vitamin D3) 25 25 mcg PO DAILY 08/10/20 02/02/25 02/04/25 07:00 History mcg (1,000 unit) capsule vit A 7,160 unit-vit C 113 mg-vit 1 tab PO DAILY 08/10/20 02/02/25 02/04/25 07:00 History E 100 krij-buwf-cbteev tablet acetaminophen 300 mg-codeine 60 mg 1 tab PO Q6H PRN pain 5 days #20 11/24/24 02/02/25 02/04/25 07:00 Rx tablet tabs quetiapine 50 mg tablet (Seroquel) See Rx Instructions .Route 11/24/24 02/02/25 02/04/25 07:00 Rx .COMPLEX #90 tabs fluoxetine 10 mg capsule (Prozac) 10 mg PO DAILY #90 caps 11/26/24 02/02/25 02/04/25 07:00 Rx latanoprost 0.005 % eye drops 1 drp ophthalmic (eye) QPM 12/04/24 02/02/25 02/04/25 07:00 History lisinopril 20 mg tablet 20 mg PO DAILY 12/04/24 02/02/25 02/05/25 07:00 History multivitamin 1 tab PO DAILY 12/04/24 02/02/25 02/04/25 07:00 History vitamin E 268 mg (400 unit) capsule 268 mg PO DAILY 12/04/24 02/02/25 02/04/25 07:00 History zinc sulfate 50 mg zinc (220 mg) 50 mg PO DAILY 12/04/24 02/02/25 02/04/25 07:00 History tablet Allergies Allergy/AdvReac Type Severity Reaction Status Date / Time No Known Allergies Allergy Verified 02/05/25 10:10 Current Medications Generic Name Dose Route Start Last Admin Trade Name Freq PRN Reason Stop Dose Admin Sodium Chloride 1,000 mls @ 15 mls/hr 02/05/25 10:08 02/05/25 10:18 Sodium Chloride 0.9% IV 02/06/25 10:07 15 mls/hr .Q24H PRN Administration COLONOSCOPY FLUIDS PFSH Anesthesia Medical History Degeneration of intervertebral disc of cervical region Glaucoma HTN (hypertension) DJD (degenerative joint disease), lumbar Spinal stenosis, cervical region Surgical History No pertinent past surgical history Family History Father CAD (coronary artery disease) Cancer Lung disease Grandfather Cancer Diabetes Grandmother Diabetes Brother Lung disease Denies family history of Clotting disorder Chronic kidney disease (CKD) Suicide Stroke Social History Smoking and tobacco/nicotine status: tobacco/nicotine user, details unknown Second hand smoke exposure: No Alcohol intake: never Substance/Drug Use: never Adopted: No Lives independently: Yes Household members: none Housing: House Marital status: / Number of children: 2 Highest education level completed: High School Graduate service: Yes ([employer]) status: Retired Current occupational status: retired Pets and animals: Yes Current gender identity: Male
[2025-02-05 11:40] VITALS: BP 88/57; PULSE 65; RESP 16; TEMP 36.3; O2SAT 98
[2025-02-05 11:58] VITALS: BP 93/69; PULSE 77; RESP 16; O2SAT 97
--- NOTE | 2025-02-05 12:20 | ANE.PACU2 ---
Inpatient post-anesthesia follow up: Airway intact: Yes Vital signs: Temperature 97.4 F Pulse Rate 77 Respiratory Rate 16 Blood Pressure 93/69 Pulse Oximetry 97 Oxygen Delivery Me thod Room Air Oxygen Flow Rate Fraction of Inspir ed Oxygen Hydration adequate: Yes Nausea and vomiting: No Pain level: 1 Mental status: Baseline
== END 2025-02-05 12:20 | disposition home or self-care (01) ==
PROVIDERS: PCP Nurse Practitioner Family; Visit Provider Surgery
PROC: 0DJD8ZZ Inspection of Lower Intestinal Tract, Via Natural or Artificial Opening Endoscopic (ICD-10-PCS; CPT 45378; principal; 2025-02-05 11:45)
DX: Z12.11 Encounter for screening for malignant neoplasm of colon (principal); D12.2 Benign neoplasm of ascending colon; D12.0 Benign neoplasm of cecum; D12.4 Benign neoplasm of descending colon; D12.3 Benign neoplasm of transverse colon; D12.8 Benign neoplasm of rectum; I10 Essential (primary) hypertension; F17.200 Nicotine dependence, unspecified, uncomplicated; K21.9 Gastro-esophageal reflux disease without esophagitis; Z79.899 Other long term (current) drug therapy
CPT/HCPCS: 45385; 88305; J2250; J2704; J7030

== ENCOUNTER → 2025-02-17 11:14 | Outpatient (BNVA) | payer MEDICARE, OTHER, SELFPAY | PROVIDERS: PCP Nurse Practitioner Family; Visit Provider Surgery | DX: Z09 Encounter for follow-up examination after completed treatment for conditions other than malignant neoplasm (principal) | CPT/HCPCS: 99213 ==